=== PATIENT | female | born 1955 | race Caucasian/White ===

== ENCOUNTER 2018-06-19 17:32 | Emergency (ER) | payer OTHER ==
[2018-06-19] MEDS: HYDROCODONE/APAP (5/325) TAB PO (19:49)
== END 2018-06-19 21:58 | disposition home or self-care (01) ==
LOC: FTE 17:32
DX: H04.302 Unspecified dacryocystitis of left lacrimal passage (principal); I10 Essential (primary) hypertension
CPT/HCPCS: 70480; 99284-25